=== PATIENT | female | born 1950 | race Caucasian/White ===

== ENCOUNTER → 2020-01-06 13:51 | Outpatient (CLI) | payer MEDICARE, SELFPAY ==
--- NOTE | ~2020-01-06 | DEXA_ITS ---
Bone Density Report Name: Germania Taylor Age: 69 Sex: Female Ethnicity: White Date of : 1950 Indication: osteopenia; hysterectomy; postmenopausal Referring Provider: Yovanny, Henrik Greer Study: Bone densitometry was performed. Exam Date: January 06, 2020 Accession number: [id number] Bone Density: Region BMD T-score Z-score Classification AP Spine (L1-L4) 1.307 2.4 4.6 Normal Femoral Neck (Left) 0.727 -1.1 0.8 Osteopenia Total Hip (Left) 0.856 -0.7 0.9 Normal Femoral Neck (Right) 0.619 -2.1 -0.2 Osteopenia Total Hip (Right) 0.660 -2.3 -0.7 Osteopenia Total Hip Mean 0.758 -1.5 0.1 Osteopenia World Health Organization criteria for BMD impression classify patients as: Normal (T-score at or above -1.0), Osteopenia (T-score between -1.0 and -2.5), or Osteoporosis (T-score at or below -2.5). 10-year Fracture Risk(1): Major Osteoporotic Fracture 12% Hip Fracture 2.3% Reported Risk Factors: [place] (), Neck BMD=0.619, BMI=34.0 (1) FRAX(R) Version 3.08. Fracture probability calculated for an untreated patient. Fracture probability may be lower if the patient has received treatment. Previous Exams: Region Exam Age BMD T-score BMD Change BMD Change Date g/cm2 vs Baseline vs Previous AP Spine(L1-L4) 01/06/2020 69 1.307 2.4 -0.050* -0.050* 09/18/2008 58 1.357 2.8 Total Hip(Left) 01/06/2020 69 0.856 -0.7 -0.073* -0.073* 09/18/2008 58 0.929 -0.1 Total Hip(Right) 01/06/2020 69 0.660 -2.3 -0.111* -0.111* 09/18/2008 58 0.771 -1.4 *Denotes significance at 95% confidence level, LSC for AP Spine = 0.022 g/cm2, LSC for Total Hip = 0.027 g/cm2 Clinical Information Provided by Patient: Has used the following medications: Calcium, CALCIUM INCLUDED VIT D, OCUVITE EYE VIT WITH LUTIN Has the following medical conditions: Hysterectomy, POLIO A CHILD Patient maximum height was 62 Menopause Age: 48 No regular weight bearing exercise Drinks caffeinated beverages Onset of menses at age 12.5 Number of children 2 Missed period for more than 6 months in a row Impression: The patient has low bone mass, based on the Right Total Hip T-score. The patient has an estimated ten-year risk of hip fracture of 2.3% and an estimated ten-year risk of major fracture of 12%, based on the WHO FRAX algorithm. The BMD for the AP Spine(L1-L4) decreased, changing by -0.050 since the last DXA exam. Th
--- NOTE | ~2020-01-06 | MM_ITS ---
EXAMINATION: MM screening [facility] BI w janey HISTORY: Screening mammogram TECHNIQUE: Craniocaudal and mediolateral oblique 3-D tomosynthesis images were obtained and synthetic 2-D images were generated. CAD analysis was submitted and interpreted. COMPARISON: 11/24/2018, 10/10/2016, 08/15/2014 BREAST PARENCHYMAL COMPOSITION: The breasts are almost entirely fatty. FINDINGS: There is no evidence of suspicious mass, calcification, or architectural distortion to sugg est malignancy in either breast. There has been no suspicious interval change. IMPRESSION: 1. No mammographic evidence of malignancy. 2. Recommend routine screening mammography in one year. BI-RADS Category 1: Negative Reviewed, dictated and finalized at location A. UM GUIDE
== END ==
PROVIDERS: PCP Family Medicine; Visit Provider Family Medicine
DX: Z12.31 Encounter for screening mammogram for malignant neoplasm of breast (principal); Z78.0 Asymptomatic menopausal state; M85.852 Other specified disorders of bone density and structure, left thigh; M85.851 Other specified disorders of bone density and structure, right thigh
CPT/HCPCS: 77063; 77067; 77080

== ENCOUNTER → 2021-03-14 14:48 | Outpatient (CLI) | payer MEDICARE, SELFPAY ==
--- NOTE | ~2021-03-14 | MM_ITS ---
EXAMINATION: MM screening [facility] BI w janey HISTORY: Screening mammogram TECHNIQUE: Craniocaudal and mediolateral oblique 3-D tomosynthesis images were obtained and synthetic 2-D images were generated. CAD analysis was submitted and interpreted. COMPARISON: 01/06/2020, 11/24/2018, 10/10/2016 BREAST PARENCHYMAL COMPOSITION: The breasts are almost entirely fatty. FINDINGS: There is no evidence of suspicious mass, calcification, or architectural distortion to sugg est malignancy in either breast. There has been no suspicious interval change. IMPRESSION: 1. No mammographic evidence of malignancy. 2. Recommend routine screening mammography in one year. BI-RADS Category 1: Negative Reviewed, dictated and finalized at location A.
== END ==
PROVIDERS: PCP Family Medicine; Visit Provider Family Medicine
DX: Z12.31 Encounter for screening mammogram for malignant neoplasm of breast (principal)
CPT/HCPCS: 77063; 77067

== ENCOUNTER 2022-04-23 13:40 | Emergency (ER) | payer MEDICARE, OTHER, SELFPAY ==
--- NOTE | ~2022-04-23 | XR_ITS ---
EXAMINATION: XR tibia fibula RT 2V, XR foot RT 2V DATE: 04/23/2022 14:07 INDICATION: Right foot and lower leg pain post injury. TECHNIQUE: 1. AP and lateral views of the right lower leg. 2. Dorsal plantar and lateral views of the right foot were obtained. COMPARISON: Left foot CT dated 08/24/2004 FINDINGS: Hindfoot arthrodesis with solid fusion at the subtalar, talonavicular and calcaneocuboid joints with lateral sided staple fixation spanning the subtalar and talonavicular joints. Likely associated chron ic corticated bone graft harvest defect at the posterior tuberosity of the calcaneus. Mild hallux kirill antoni. Alignment of the right foot, ankle and lower leg is otherwise unremarkable. No fracture. Chondro calcinosis at the medial compartment of the right knee likely involving the medial meniscus. Mild to moderate polyarticular osteoarthritis involving the majority the unfused joints at the right mid and forefoot. Mild joint space narrowing at the medial compartment of the right knee. No right knee or an kle joint effusion. Mild soft tissue along about the right forefoot. Marked fatty atrophy of the musc ulature of the right calf consistent with provided history of polio. IMPRESSION: 1. No acute osseous abnormality . Right foot or lower leg. 2. Solidly fused right hindfoot arthrodesis. 3. 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 Reviewed, dictated and finalized at location B. IMPRESSION: 1. No acute osseous abnormality . Right foot or lower leg. 2. Solidly fused right hindfoot arthrodesis. 3. Polyarticular osteoarthritis, mild at the right knee and mild to moderate in the right mid and forefoot.
[2022-04-23 13:49] VITALS: BP 158/83; PULSE 95; RESP 16; TEMP 36.9; O2SAT 99
--- NOTE | 2022-04-23 13:52 | ED.LOWEXIN ---
HPI - Extremity Injury (Lower) General Chief Complaint: Extremity Injury, Lower Stated Complaint: right leg pain Time Seen by Provider: 04/23/22 13:53 Source: patient Mode of arrival: ambulatory Limitations: no limitations History of Present Illness HPI Narrative: 71-year-old wheelchair-bound female with history of polio presented for complaint of right lower leg pain after injury today. She states she was in her electric chair, her foot got stuck between 2 banisters and she moved to the chair but her leg did not move and it snapped, she has felt pain to the leg and swelling to the foot since. Takes ibuprofen nightly for pain, has not taken anything today. Denies increased numbness, tingling or weakness. Related Data Home Medications Medication Instructions Recorded Confirmed alprazolam 0.5 mg tablet (Xanax) 0.5 mg PO QHS 02/27/21 03/29/21 ascorbate calcium (vitamin C) 500 500 mg PO DAILY 02/27/21 03/29/21 mg tablet calcium carbonate 600 mg calcium 600 mg PO BID 02/27/21 03/29/21 (1,500 mg) tablet fluconazole 150 mg tablet 150 mg PO 2XW 02/27/21 03/29/21 glucosam 750 mg-chondroi 100 3 tablet PO 02/27/21 03/29/21 mg-hyalur 1.65 mg-CF borate 108 mg tablet (Playspace) ibuprofen 200 mg tablet 200 mg PO Q6H PRN 02/27/21 03/29/21 indapamide 1.25 mg tablet 1.25 mg PO DAILY 02/27/21 03/29/21 levothyroxine 100 mcg capsule 100 mcg PO DAILY 02/27/21 03/29/21 losartan 100 mg tablet 100 mg PO DAILY 02/27/21 03/29/21 mecobalamin (vitamin B12) 5,000 2,500 mcg PO DAILY 02/27/21 03/29/21 mcg lozenge omeprazole 20 mg capsule,delayed 20 mg PO DAILY 02/27/21 03/29/21 release suvorexant 20 mg tablet (Belsomra) 20 mg PO ONCE 02/27/21 03/29/21 Allergies Allergy/AdvReac Type Severity Reaction Status Date / Time No Known Allergies Allergy Verified 03/20/21 13:30 Review of Systems Review of Systems: CONSTITUTIONAL: Denies body aches, fever, chills CARDIOVASCULAR: Denies chest pain, palpitations, or edema. RESPIRATORY: Denies cough or dyspnea. SKIN: Denies rash, itching, or wounds. MUSCULOSKELETAL: reports right leg pain NEUROLOGIC: Denies headache, increased numbness, tingling, or weakness. All systems reviewed & are unremarkable except as noted in HPI and below PMFSH Past Medical History Medical History Anxiety Arthritis Hypertension Hypothyroidism Polio age 11 months Surgery, elective multiple surgeries for polio as a child Surgical History Surgical History History of appendectomy 1974 History of back surgery 2016 History of bilateral salpingo-oophorectomy 1999 History of dilation and curettage x3 History of exploratory laparotomy 1974 History of hysterectomy 1998 S/P laparoscopic procedure 12/2017, right adrenal gland Family History Family History Mother Depression Anxiety Social History Social History Smoking status: Never smoker Second hand tobacco smoke exposure: No Alcohol intake: current Alcohol use details: occassional Substance use: never Comments At time of signature, I have reviewed and agree with nursing past medical, surgical, social and family history unless otherwise noted. Please see nursing chart for further information. There is no relevant family history pertinent to the presenting complaint Exam Narrative: GENERAL: Well-appearing CHEST: Speaks in full sentences. No respiratory distress. HEART: Regular rate and rhythm. Normal and equal peripheral pulses. EXTREMITIES: w/c; RLE has chronic decreased strength and range of motion; Right ankle pain with flexion; right foot mild edema small in size; no ecchymosis, or point tenderness. No open wounds, or obvious deformity; normal sensation, pulse palpable, skin warm, dry,
== END 2022-04-23 14:33 | disposition home or self-care (01) ==
PROVIDERS: Emergency Provider Nurse Practitioner Family; PCP Family Medicine
DX: M79.661 Pain in right lower leg (principal); M19.90 Unspecified osteoarthritis, unspecified site; I10 Essential (primary) hypertension; E03.9 Hypothyroidism, unspecified
CPT/HCPCS: 73590; 73620; 99213; G0463

== ENCOUNTER 2023-04-01 11:29 | Outpatient (CLI) | payer MEDICARE, OTHER, SELFPAY ==
[2023-04-01 12:19] LABS: Appearance Urine Clear (Clear); Bacteria Urine 4+ /hpf; Bilirubin Urine Negative (Negative); Blood Urine Negative (Negative); Color Urine Yellow (Yellow); Glucose Urine UA Negative (Negative); Ketones Urine Negative (Negative); Leukocyte Esterase Ur 2+ LEU/UL (NEGATIVE); Nitrate Urine Positive (Negative); Non Pathogenic Casts 0-2; Protein Urine Negative (Negative); Squamous Epithelial Cell Urine None seen /hpf (Few); Urobilinogen Urine 0.2 mg/dL (<2.0); WBC Urine 21-50 /hpf (0-3)
[2023-04-01 12:23] LABS: Add Urine Microscopic? YES
== END 2023-04-01 11:30 | disposition home or self-care (01) ==
LOC: ANHLAB 11:31
PROVIDERS: PCP Family Medicine; Visit Provider Registered Nurse
DX: R39.9 Unspecified symptoms and signs involving the genitourinary system (principal)
CPT/HCPCS: 81001; 87077; 87086; 87186